=== PATIENT | female | born 1950 | race Caucasian/White ===

== ENCOUNTER 2022-07-04 17:41 | Emergency (ER) | payer MEDICARE, SELFPAY ==
--- NOTE | ~2022-07-04 | XR_ITS ---
EXAM: XR ankle RT min 3V, XR foot RT min 3V DATE: 07/04/2022 18:44 (accession [id number]), 07/04/2022 18:43 (accession [id number]) HISTORY: FALL, 2 WEEKS AGO,RT ANKLE AND FOOT PAIN . COMPARISON: None available. FINDINGS: Decreased mineralization. Avulsion fracture along the superior surface of the anterior devante us. Mildly displaced fracture of the anterior calcaneal process. Small linear ossific fragment adjace nt to the cuboid may represent a small fracture fragment. No lytic or blastic lesion. Joint spaces ar e maintained. No erosion or periosteal change. Soft tissues within normal limits. IMPRESSION: Mildly displaced fracture of the anterior calcaneal process. Anterior ankle joint capsula r avulsion fracture. Possible small fracture fragment projecting at the lateral cuboid. Reviewed, dictated and finalized at [facility]. IMPRESSION: Mildly displaced fracture of the anterior calcaneal process. Anteri or ankle joint capsular avulsion fracture. Possible small fracture fragment pro jecting at the lateral cuboid.
--- NOTE | ~2022-07-04 | XR_ITS ---
EXAM: XR hand LT min 3V, XR wrist LT min 3V DATE: 07/04/2022 18:03 HISTORY: FALL, LT HAND PAIN . COMPARISON: None available. FINDINGS: Decreased mineralization. No fracture or dislocation. No lytic or blastic lesion. Scattere d mild osteoarthritic changes. No erosion or periosteal change. Soft tissues within normal limits. IMPRESSION: No acute osseous finding in the left wrist or hand. Reviewed, dictated and finalized at location [facility]. IMPRESSION: No acute osseous finding in the left wrist or hand.
--- NOTE | 2022-07-04 17:44 | ED.FALL ---
HPI - Fall General Stated Complaint: fall Time Seen by Provider: 07/04/22 17:44 Source: patient Mode of arrival: ambulatory Limitations: no limitations History of Present Illness HPI Narrative: Ms. Sandoval is a 72-year-old female patient presenting to the clinic today with complaints of a fall x2-3 weeks ago. Patient is unsure of exactly when this happened. She reports she is having left hand, left wrist, right foot, and right ankle pain from the fall. She is requesting x-rays as she thinks that they may be broken. She denies hitting her head or any loss of consciousness Related Data Home Medications Medication Instructions Recorded Confirmed potassium chloride 10 mEq meq PO 07/04/22 tablet,extended release venlafaxine 75 mg capsule,extended mg PO 07/04/22 release 24 hr Allergies Allergy/AdvReac Type Severity Reaction Status Date / Time erythromycin base AdvReac Mild NAUSEA Verified 07/04/22 17:51 Review of Systems Review of Systems: Pertinent positives per HPI. Patient denies any fever, chills, rash, headache, visual changes, dizziness, cough, runny nose, sore throat, shortness of breath, chest pain, palpitations, nausea, vomiting, diarrhea, constipation, abdominal pain, or any urinary issues. PMFSH Comments At the time of my signature, I reviewed and agree with the nursing past medical, surgical, social, and family history. There is no relevant family history pertinent to the patient complaint. Exam Narrative: General: Well-developed, well nourished, in no apparent distress Head: Normocephalic, atraumatic. Cardio: Regular rate and rhythm, s1 and s2 normal, no murmur appreciated. Resp: Clear to auscultation bilaterally, no rhonchi, rales, wheezing or rubs. Musculoskeletal: No deformity, mild tender to palpation over the left wrist, left hand, and right lateral foot and ankle, grossly normal range of motion, muscle strength strong and equal, peripheral pulse strong, mild swelling to the right lateral, no cyanosis, normal gait and station Course Course Emergency Course: Portions of this record may have been created with voice recognition software. Level of Care: Express Care Visit Vital Signs Vital signs: Vital signs reviewed MDM - Fall MDM Narrative Medical decision making narrative: At the time of visit patient is resting comfortably on the exam table. X-rays were negative for any fracture or malalignment of the left hand, wrist or right ankle she does have some arthritis I suspect the patient has a left hand sprain/wrist sprain, right foot sprain, supportive measures were discussed with the patient and she voiced understanding of discharge instructions and agrees to treatment plan Differential Diagnosis Differential diagnosis: Likely fracture of wrist and other (Wrist sprain, hand sprain, contusion, fall injury, foot sprain, ankle sprain, foot fracture, ankle fracture) Discharge Plan Discharge Clinical Impression: Fall, Hand sprain, Left wrist sprain, Closed fracture of cuboid bone, Avulsion fracture of ankle, Avulsion fracture of calcaneus Patient Disposition: Home, Self-Care Condition: Stable Instructions: Antibiotic Form, Ankle Fracture (ED), Foot Fracture in Adults (ED), Fall Prevention for Older Adults (ED), Hand Sprain (ED), Wrist Sprain (ED) Additional Instructions: X-rays negative for any fracture or malalignment of the left hand and left wrist X-ray of right ankle shows an avulsion fracture. X-ray of right foot shows a calcaneal fracture and cuboid bone fracture Wear post -op shoe until seen by ortho Rest, ice, and elevate Take Tylenol/Motrin as needed for pain Follow-up with your PCP in 3 to 5 days if symptoms persist or sooner. Follow up with orthopedic provider (Dr. Moe)- call for an appointment on Wednesday. Follow-up/Referrals: Jose A Sarmiento MD [Physician] - Andrea,William Gonzalez MD [Primary Care Provider] - Time of Disposition: 18:19 Qual
[2022-07-04 17:51] VITALS: BP 153/86; PULSE 70; RESP 18; TEMP 37.6; O2SAT 99
== END 2022-07-04 19:39 | disposition home or self-care (01) ==
PROVIDERS: Emergency Provider Nurse Practitioner Family; PCP Internal Medicine
DX: S63.92XA Sprain of unspecified part of left wrist and hand, initial encounter (principal); W19.XXXA Unspecified fall, initial encounter; S63.502A Unspecified sprain of left wrist, initial encounter; S92.211A Displaced fracture of cuboid bone of right foot, initial encounter for closed fracture; S92.001A Unspecified fracture of right calcaneus, initial encounter for closed fracture; S92.151A Displaced avulsion fracture (chip fracture) of right talus, initial encounter for closed fracture
CPT/HCPCS: 73110; 73130; 73610; 73630; 99214; G0463

== ENCOUNTER 2022-10-26 15:44 | Emergency (ER) | payer MEDICARE, SELFPAY ==
--- NOTE | 2022-10-26 15:49 | ED.DENTAL ---
HPI - Dental/Oral General Chief complaint: Dental/Oral Stated complaint: Dental/Neck Pain Time Seen by Provider: 10/26/22 15:50 Source: patient, RN notes reviewed and old records reviewed Mode of arrival: ambulatory Limitations: no limitations History of Present Illness HPI Narrative: 72-year-old female presents to the [facility] with complaints of right posterior lower dental pain for the last 4-5 days. Patient reports having a root canal several years ago and the crown came off. Did not seek treatment to have this repaired. States it has been a couple of years Related Data Home Medications Medication Instructions Recorded Confirmed potassium chloride 10 mEq 10 meq PO DAILY 07/04/22 10/26/22 tablet,extended release venlafaxine 75 mg capsule,extended 75 mg PO DAILY 07/04/22 10/26/22 release 24 hr tramadol 50 mg tablet 50 mg DIRECTED 10/26/22 10/26/22 Allergies Allergy/AdvReac Type Severity Reaction Status Date / Time erythromycin base AdvReac Mild NAUSEA Verified 10/26/22 15:59 Review of Systems Review of Systems: All systems reviewed & are unremarkable except as noted in HPI and below Constitutional: Constitutional: Reports no additional constitutional complaints Eyes: Eyes: Reports no additional eye complaints ENT: Reports as per HPI (Dental pain, right lower) Cardiovascular: Cardiovascular: Reports no additional cardiovascular complaints, Denies chest pain and Denies dyspnea Respiratory: Respiratory: Reports no additional respiratory complaints, Denies chest congestion, Denies cough and Denies dyspnea Gastrointestinal: Gastrointestinal: Reports no additional gastrointestinal complaints, Denies abdominal pain, Denies nausea and Denies vomiting Musculoskeletal: Musculoskeletal: Reports no additional musculoskeletal complaints Integumentary/Breasts: Skin/Breast: Reports system reviewed and no additional complaints, except as docu Neurologic: Reports system reviewed and no additional complaints, except as documented Psychiatric: Psychiatric: Reports no additional psychiatric complaints Allergic/Immunologic: Allergic/Immunologic: Reports no additional allergic/immunologic complaints PMFSH Past Medical History Medical History Arthritis Claustrophobia Dizziness Fibromyalgia GERD (gastroesophageal reflux disease) History of dental problems HLD (hyperlipidemia) HTN (hypertension) Hypothyroidism IBS (irritable bowel syndrome) ISAAC (obstructive sleep apnea) Osteopenia SOB (shortness of breath) on exertion Vision changes Surgical History Surgical History H/O: hysterectomy by Dr. Caro Family History Family History Other Adopted child Heart disease Hypertension Social History Social History Smoking status: Former smoker Tobacco type: cigarettes Smoking end date: 11/15/79 Alcohol intake: never Substance use type: does not use Gender identity (if verbalized by the patient): Female Comments At the time of my signature, I reviewed and agree with the nursing past medical, surgical, social, and family history. There is no relevant family history pertinent to the patient complaint. Exam Const: General: cooperative, healthy appearing, comfortable, no acute distress, well developed, alert and well nourished Nutritional Appearance: well nourished Orientation/consciousness: patient oriented x3 Limitations: no limitations HENMT: Head: normal to inspection Ears: hearing grossly normal bilaterally and external ears normal Face/Nose/Sinus: Normal external nose present, Normal nares present, Normal nasal mucous membranes and turbinates present and normal facial exam Face and sinus: normal facial exam Mouth: Yes Normal oral and palatal mucosa present, Yes li
[2022-10-26 15:50] VITALS: BP 180/63; PULSE 76; RESP 20; TEMP 37.4; O2SAT 97
== END 2022-10-26 16:05 | disposition home or self-care (01) ==
PROVIDERS: Emergency Provider Nurse Practitioner; PCP Internal Medicine
DX: K02.9 Dental caries, unspecified (principal); K04.7 Periapical abscess without sinus; E78.5 Hyperlipidemia, unspecified; I10 Essential (primary) hypertension; E03.9 Hypothyroidism, unspecified; Z87.891 Personal history of nicotine dependence
CPT/HCPCS: 99213; G0463

== ENCOUNTER 2023-03-09 18:01 | Emergency (ER) | payer MEDICARE, SELFPAY ==
--- NOTE | 2023-03-09 18:12 | ED.URI ---
HPI - URI/Sore Throat General Chief Complaint: Upper Respiratory Infection Stated Complaint: Ear Irritation/Throat Time Seen by Provider: 03/09/23 18:12 Source: patient, RN notes reviewed and old records reviewed Mode of arrival: ambulatory Limitations: no limitations History of Present Illness HPI Narrative: 72-year-old female presents to the [facility] with complaints of ear discomfort that radiates slightly down her neck. States 3 nights ago she had itchy ears, took her ear plugs out and scratched her ears with her long fingernails. States doing better today but wanted to get evaluated. Related Data Home Medications Medication Instructions Recorded Confirmed potassium chloride 10 mEq 10 meq PO DAILY 07/04/22 10/26/22 tablet,extended release venlafaxine 75 mg capsule,extended 75 mg PO DAILY 07/04/22 10/26/22 release 24 hr tramadol 50 mg tablet 50 mg DIRECTED 10/26/22 10/26/22 Allergies Allergy/AdvReac Type Severity Reaction Status Date / Time erythromycin base AdvReac Mild NAUSEA Verified 10/26/22 15:59 Review of Systems Review of Systems: All systems reviewed & are unremarkable except as noted in HPI and below Constitutional: Constitutional: Reports no additional constitutional complaints Eyes: Eyes: Reports no additional eye complaints ENT: Reports as per HPI Cardiovascular: Cardiovascular: Reports no additional cardiovascular complaints, Denies chest pain and Denies dyspnea Respiratory: Respiratory: Reports no additional respiratory complaints, Denies chest congestion, Denies cough and Denies dyspnea Gastrointestinal: Gastrointestinal: Reports no additional gastrointestinal complaints, Denies abdominal pain, Denies nausea and Denies vomiting Musculoskeletal: Musculoskeletal: Reports no additional musculoskeletal complaints Integumentary/Breasts: Skin/Breast: Reports system reviewed and no additional complaints, except as docu Neurologic: Reports system reviewed and no additional complaints, except as documented Psychiatric: Psychiatric: Reports no additional psychiatric complaints Allergic/Immunologic: Allergic/Immunologic: Reports no additional allergic/immunologic complaints [facility] Past Medical History Medical History Arthritis Claustrophobia Dizziness Fibromyalgia GERD (gastroesophageal reflux disease) History of dental problems HLD (hyperlipidemia) HTN (hypertension) Hypothyroidism IBS (irritable bowel syndrome) ISAAC (obstructive sleep apnea) Osteopenia SOB (shortness of breath) on exertion Vision changes Surgical History Surgical History H/O: hysterectomy by Dr. Caro Family History Family History Other Adopted child Heart disease Hypertension Social History Social History Smoking status: Former smoker Tobacco type: cigarettes Smoking end date: 11/15/79 Alcohol intake: never Substance use type: does not use Living arrangements: with family Occupation/Education: other Gender identity (if verbalized by the patient): Female Comments At the time of my signature, I reviewed and agree with the nursing past medical, surgical, social, and family history. There is no relevant family history pertinent to the patient complaint. Exam Const: General: cooperative, healthy appearing, comfortable, no acute distress, well developed, alert and well nourished Nutritional Appearance: well nourished Orientation/consciousness: patient oriented x3 Limitations: no limitations HENMT: Head: normal to inspection Ears: hearing grossly normal bilaterally, external ears normal, TM's normal bilaterally and Abnormal EAC present erythema on the left, EAC tenderness on the left and other (Abrasion noted to the 4-7 o'clock mid canal with surrounding eryth
[2023-03-09 18:13] VITALS: BP 149/59; PULSE 74; RESP 18; TEMP 36.7; O2SAT 100
[2023-03-09 18:25] VITALS: BP 149/59; PULSE 74; RESP 18; TEMP 36.7; O2SAT 100
== END 2023-03-09 18:30 | disposition home or self-care (01) ==
PROVIDERS: Emergency Provider Nurse Practitioner; PCP Internal Medicine
DX: S00.412A Abrasion of left ear, initial encounter (principal); L08.9 Local infection of the skin and subcutaneous tissue, unspecified; X58.XXXA Exposure to other specified factors, initial encounter; Z87.891 Personal history of nicotine dependence; M19.90 Unspecified osteoarthritis, unspecified site; M79.7 Fibromyalgia; K21.9 Gastro-esophageal reflux disease without esophagitis; E78.5 Hyperlipidemia, unspecified; I10 Essential (primary) hypertension; E03.9 Hypothyroidism, unspecified; M85.80 Other specified disorders of bone density and structure, unspecified site
CPT/HCPCS: 99213; G0463